=== PATIENT | male | born 1970 | race Caucasian/White ===

== ENCOUNTER 2019-10-26 18:00 | Emergency (ER) | payer SELFPAY ==
[~2019-10-26] VITALS: Ht 177.8 cm; Wt 65.0 kg
[2019-10-26] MEDS ORDERED: CEPHALEXIN500 M1 PO (18:57)
[2019-10-26 19:12] VITALS: BP 133/84
== END 2019-10-26 19:15 | disposition home or self-care (01) | DRG 914 ==
LOC: ED 18:00
PROC: 3E0T3BZ Introduction of Anesthetic Agent into Peripheral Nerves and Plexi, Percutaneous Approach (ICD-10-PCS; principal; 2019-10-26)
DX: S61.243A Puncture wound with foreign body of left middle finger without damage to nail, initial encounter (principal); F17.210 Nicotine dependence, cigarettes, uncomplicated; W26.8XXA Contact with other sharp object(s), not elsewhere classified, initial encounter; W45.8XXA Other foreign body or object entering through skin, initial encounter; Y93.59 Activity, other involving other sports and athletics played individually; Y92.828 Other wilderness area as the place of occurrence of the external cause

== ENCOUNTER 2020-01-24 10:36 | Emergency (ER) | payer SELFPAY ==
[~2020-01-24] VITALS: Ht 177.8 cm; Wt 70.0 kg
[~2020-01-24 10:36] MED LIST: CEPHALEXIN500 M1 PO
[2020-01-24] MEDS ORDERED: KEFLEX500 M1 PO (12:08)
[2020-01-24 12:20] VITALS: BP 143/97
== END 2020-01-24 12:20 | disposition home or self-care (01) | DRG 914 ==
LOC: ED 10:36
PROC: 0HCJXZZ Extirpation of Matter from Left Upper Leg Skin, External Approach (ICD-10-PCS; principal; 2020-01-24)
DX: S71.142A Puncture wound with foreign body, left thigh, initial encounter (principal); F17.210 Nicotine dependence, cigarettes, uncomplicated; W26.8XXA Contact with other sharp object(s), not elsewhere classified, initial encounter; W45.8XXA Other foreign body or object entering through skin, initial encounter; Y93.89 Activity, other specified; Y92.89 Other specified places as the place of occurrence of the external cause

== ENCOUNTER 2024-01-21 15:27 | Emergency (ER) | payer SELFPAY ==
[~2024-01-21] VITALS: Ht 177.8 cm; Wt 63.5 kg
[~2024-01-21 15:27] MED LIST changes: +KEFLEX500 M1 PO
[2024-01-21 15:36] VITALS: BP 147/100
[2024-01-21 15:45] VITALS: BP 144/91
[2024-01-21 16:10] LABS: URINE BLOOD DIPSTICK Negative (NEGATIVE); URINE GLUCOSE - DIPSTICK 100 mg/dL (NEGATIVE); URINE KETONE Negative (NEGATIVE); URINE LEUK ESTERASE Trace (NEGATIVE); URINE NITRITE - DIPSTICK Negative (Negative); URINE PROTEIN - DIPSTICK Negative (NEG-TRACE); URINE SPECIFIC GRAVITY >=1.030; URINE UROBILINOGEN - DIPSTICK 0.2 E.U./dL (0.2)
[2024-01-21 16:11] LABS: URINE COLOR Yellow
[2024-01-21] MEDS ORDERED: METHOCARBAMOL500 MG PO (16:17)
[2024-01-21] MEDS ORDERED: NAPROXEN500 MG PO (16:17)
[2024-01-21 16:33] VITALS: BP 144/91
== END 2024-01-21 16:33 | disposition home or self-care (01) | DRG 552 ==
LOC: ED 15:27
PROVIDERS: Nurse Practitioner
DX: M54.50 Low back pain, unspecified (principal); F17.210 Nicotine dependence, cigarettes, uncomplicated